=== PATIENT | male | born 1965 | race African-American/Black ===

== ENCOUNTER 2024-11-15 18:33 | Inpatient (IN) | payer MEDICARE, OTHER ==
[2024-11-15] MEDS ORDERED: Morphine 4 MG/ML VIAL ONE (18:45)
[2024-11-15 19:29] LABS: #Basophils 0.05 10x3/uL (0.0-0.2); %Basophils 0.7 % (0.0-1.0); %Eosinophils 4.3 % (0.0-10.0); %Lymphocytes 21.7 % (21.0-51.0); %Monocytes 6.7 % (0.0-10.0); %Neutrophils 65.6 % (42.0-75.0); Hematocrit 27.5 % (42.0-52.0); Hemoglobin 8.4 g/dL (14.0-18.0); Mean Corpuscular HGB CONC 30.5 g/dL (32.0-36.0); Mean Corpuscular Hemoglobin 25.9 pg (27.0-31.0); Mean Corpuscular Volume 84.9 fL (78.0-98.0); Mean Platelet Volume 10.8 fL (7.4-10.4); Platelet Count 271 10x3/uL (130-400); RBC Distribution Width 18.8 % (11.5-14.5); Red Blood Cell (RBC) Count 3.24 mill/uL (4.70-6.10)
[2024-11-15 19:50] LABS: ALT (SGPT) Less than 5 U/L (8-55); AST (SGOT) 6 U/L (5-34); Albumin 1.9 g/dL (3.5-5.0); Alkaline Phosphatase 84 U/L (40-110); Anion Gap 21 mmol/L (10-20); BUN (Urea Nitrogen) 68 mg/dL (8.4-25.7); Bilirubin, Total 0.2 mg/dL (0.2-1.2); Calc. Creatinine Clearance 0 mL/min (70-130); Calcium 8.3 mg/dL (7.8-10.44); Carbon Dioxide 12 mmol/L (22-29); Chloride 112 mmol/L (98-107); Estimated GFR 3; Globulin 3.9 g/dL (2.4-3.5); Glucose 72 mg/dL (70-105); Magnesium 1.9 mg/dL (1.6-2.6); Potassium 6.7 mmol/L (3.5-5.1); Protein, Total 5.8 g/dL (6.0-8.3); Sodium 138 mmol/L (136-145)
[2024-11-15 23:42] LABS: HBSAB Concentration 57.75 mIU/mL; HBsAg Index 0.25 S/CO (0-0.99); Hep B Core Total Ab NONREACTIVE (NonReactive); Hep B Core Total Index 0.41 S/CO (0-0.79); Hep B Surf AB REACTIVE (NonReactive); Hep B Surf Ag NONREACTIVE S/CO (NonReactive); Hep C IgG Ab NONREACTIVE S/CO (NonReactive); Hep C Index 0.11 S/CO (0-0.79)
[2024-11-16] MEDS ORDERED: Acetaminophen 325 MG TAB PO PRN (00:03)
[2024-11-16] MEDS ORDERED: Pharmacy to Dose : VANC/ABX'S IVPB PRN (00:07)
[2024-11-16] MEDS ORDERED: Vancomycin Hemodialysis Sliding Scale FS SCH (00:45)
[2024-11-16 01:18] VITALS: BMI 15.2
[2024-11-16] MEDS: Morphine 4 MG/ML VIAL SLOW IVP PRN (02:03)
[2024-11-16] MEDS: Albumin 25% 25 GM (100 mL) BOT IVPB SCH (02:14)
[2024-11-16 05:08] LABS: #Basophils 0.03 10x3/uL (0.0-0.2); %Basophils 0.5 % (0.0-1.0); %Eosinophils 5.8 % (0.0-10.0); %Lymphocytes 20.3 % (21.0-51.0); %Monocytes 6.8 % (0.0-10.0); %Neutrophils 65.9 % (42.0-75.0); Hemoglobin 7.3 g/dL (14.0-18.0); Mean Corpuscular HGB CONC 31.7 g/dL (32.0-36.0); Mean Corpuscular Hemoglobin 25.6 pg (27.0-31.0); Mean Corpuscular Volume 80.7 fL (78.0-98.0); Mean Platelet Volume 10.6 fL (7.4-10.4); Platelet Count 171 10x3/uL (130-400); RBC Distribution Width 18.3 % (11.5-14.5); Red Blood Cell (RBC) Count 2.85 mill/uL (4.70-6.10)
[2024-11-16] MEDS: Meropenem 500 MG in Sodium Chloride 0.9% 100 ML IVPB SCH (05:18)
[2024-11-16 05:27] LABS: Anion Gap 16 mmol/L (10-20); BUN (Urea Nitrogen) 32 mg/dL (8.4-25.7); Calc. Creatinine Clearance 8 mL/min (70-130); Calcium 7.6 mg/dL (7.8-10.44); Carbon Dioxide 21 mmol/L (22-29); Chloride 103 mmol/L (98-107); Estimated GFR 8; Glucose 98 mg/dL (70-105); Potassium 3.9 mmol/L (3.5-5.1); Sodium 136 mmol/L (136-145)
[2024-11-16 05:32] LABS: Vancomycin, Random 23.8 ug/mL (See Comment)
[2024-11-16] MEDS: VANCOMYCIN IVPB SCH (07:38)
[2024-11-16] MEDS: Heparin 5,000 UNITS/ML VIAL SC SCH (08:25)
[2024-11-16] MEDS: Minocycline HCl 50 MG CAP PO SCH (08:26)
[2024-11-16] MEDS ORDERED: DEXTROSE 5% IVPB SCH (12:00)
[2024-11-16] MEDS ORDERED: [UNRECOGNIZED DRUG - OTHER] IVPB SCH (12:00)
[2024-11-16] MEDS ORDERED: VANCOMYCIN HCL IVPB SCH (12:00)
[2024-11-16 13:04] LABS: Iron 86 ug/dL (65-175); Iron Binding Capacity, Total 71 mcg/dL (261-462)
[2024-11-16 14:22] LABS: Vitamin D, 25 Hydroxy Less than 3.5 ng/ml (> 30.0)
[2024-11-16] MEDS: Trospium 20 MG TAB PO SCH (14:23)
[2024-11-16] MEDS: Midodrine HCl 5 MG TAB PO SCH (14:23)
[2024-11-16 16:29] VITALS: BMI 15.2
[2024-11-16] MEDS: Sevelamer Carbonate 800 MG TAB PO SCH (17:53)
[2024-11-16] MEDS: Melatonin 3 MG TAB PO SCH (20:53)
[2024-11-16] MEDS: traMADol HCl 50 MG TAB PO PRN (20:53)
[2024-11-16] MEDS: Ondansetron PF 4 MG/2 ML Vial IVP PRN (22:21)
[2024-11-16] MEDS: Acetaminophen/Codeine 30-300mg Tablet PO PRN (23:50)
[2024-11-17 04:11] LABS: Bacteria/HPF None Seen HPF (None Seen); Bilirubin Negative (Negative); Blood, Urine 2+ (Negative); CAUTI Indications for Culture Dysuria,urgency,freq; Clarity Extra Turbid (Clear); Glucose, Urine (Dipstick) Normal (Negative); Ketone, Urine Negative (Negative); Leukocyte 500 Leu/uL (Negative); Nitrite Negative (Negative); Protein, Urine (Dipstick) 200 mg/dL (Neg-Trace); RBC/HPF Greater than 50 HPF (0-3); Specific Gravity, Urine 1.008 (1.002-1.036); Urobilinogen Normal mg/dL (Less than 2); WBC/HPF Greater than 50 HPF (0-3)
[2024-11-17 04:13] LABS: Urine Culture Reflex Yes Yes
[2024-11-17] MEDS: Finasteride 5 MG TAB PO SCH (09:05)
[2024-11-17] MEDS: Pantoprazole 40 MG DR.TAB PO SCH (09:05)
[2024-11-17] MEDS: Ergocalciferol 1.25 MG(50,000 UNITS) CAP PO SCH (09:05)
[2024-11-17] MEDS: Trospium 20 MG TAB PO SCH (09:05)
[2024-11-17] MEDS: Tamsulosin HCl 0.4 MG CAP PO SCH (09:05)
[2024-11-17] MEDS: Polyethylene Glycol 3350 17 GM Packet PO SCH (09:06)
[2024-11-17] MEDS: Morphine 2 MG/ML VIAL SLOW IVP PRN (10:21)
[2024-11-17] MEDS: EPOETIN ALFA-EPBX (ESRD) 10,000 UNITS/ML VIAL SC SCH (11:54)
[2024-11-18] MEDS: tiZANidine HCl 4 MG TAB PO PRN (01:46)
[2024-11-18] MEDS: Triple Antibiotic Oint 1 GM Packet TOP PRN (04:06)
[2024-11-18 04:34] LABS: #Basophils 0.04 10x3/uL (0.0-0.2); %Basophils 0.7 % (0.0-1.0); %Eosinophils 7.2 % (0.0-10.0); %Lymphocytes 32.9 % (21.0-51.0); %Monocytes 8.3 % (0.0-10.0); %Neutrophils 50.2 % (42.0-75.0); Hematocrit 27.1 % (42.0-52.0); Hemoglobin 8.2 g/dL (14.0-18.0); Mean Corpuscular HGB CONC 30.3 g/dL (32.0-36.0); Mean Corpuscular Hemoglobin 25.2 pg (27.0-31.0); Mean Corpuscular Volume 83.1 fL (78.0-98.0); Mean Platelet Volume 10.1 fL (7.4-10.4); Platelet Count 169 10x3/uL (130-400); RBC Distribution Width 18.6 % (11.5-14.5); Red Blood Cell (RBC) Count 3.26 mill/uL (4.70-6.10)
[2024-11-18 05:16] LABS: Anion Gap 17 mmol/L (10-20); BUN (Urea Nitrogen) 45 mg/dL (8.4-25.7); Calc. Creatinine Clearance 5 mL/min (70-130); Carbon Dioxide 21 mmol/L (22-29); Chloride 106 mmol/L (98-107); Potassium 6.3 mmol/L (3.5-5.1); Sodium 138 mmol/L (136-145)
[2024-11-18 05:17] LABS: Albumin 1.9 g/dL (3.5-5.0); BUN/Creatinine Ratio 3.97; Calcium 7.2 mg/dL (7.8-10.44); Estimated GFR 5; Glucose 88 mg/dL (70-105)
[2024-11-18] MEDS: Insulin Regular, Human 100 UNIT/ML 10 ML VIAL IVP SCH (05:46)
[2024-11-18] MEDS: CALCIUM GLUC 1 GM/NS 50 ML 1 GM in Premix 1 BAG IVPB SCH (05:56)
[2024-11-18] MEDS: Dextrose 50% Abboject 50 ML SYRINGE SLOW IVP SCH (05:57)
[2024-11-18] MEDS: Calcium Gluc 4.6 MEQ/10 ML (100 MG/ML) SLOW IVP ONE (06:10)
[2024-11-18 07:52] LABS: Vancomycin, Trough 22.2 ug/mL
[2024-11-18] MEDS ORDERED: Albumin 25% 25 GM (100 mL) BOT IVPB PRN (09:12)
[2024-11-18] MEDS: Activase 2 MG VIAL CATH SCH ×2 (15:09→15:16)
[2024-11-18] MEDS: Sterile Water 10 ML VIAL FS SCH (15:19)
[2024-11-18] MEDS: Sterile Water 10 ML VIAL IVP SCH (15:19)
[2024-11-18] MEDS: Meropenem 500 MG in Sodium Chloride 0.9% 100 ML IVPB SCH (20:14)
[2024-11-19 05:54] LABS: Albumin 1.8 g/dL (3.5-5.0); Anion Gap 15 mmol/L (10-20); BUN (Urea Nitrogen) 28 mg/dL (8.4-25.7); BUN/Creatinine Ratio 3.23; Calc. Creatinine Clearance 7 mL/min (70-130); Calcium 7.3 mg/dL (7.8-10.44); Carbon Dioxide 25 mmol/L (22-29); Chloride 106 mmol/L (98-107); Estimated GFR 6; Glucose 110 mg/dL (70-105); Phosphorus 7.1 mg/dL (2.3-4.7); Potassium 5.7 mmol/L (3.5-5.1); Sodium 140 mmol/L (136-145)
[2024-11-19] MEDS: Albumin 25% 25 GM (100 mL) BOT IVPB SCH ×2 (08:11→14:19)
[2024-11-19 08:52] LABS: Glucose 126 mg/dL (70-105)
[2024-11-19] MEDS ORDERED: Heparin 10,000 UNITS/ 10 ML VIAL ONE (09:40)
[2024-11-19] MEDS: Vancomycin HCl 250 MG in Sodium Chloride 0.9% 100 ML IVPB SCH (11:23)
[2024-11-19 12:02] LABS: Glucose 106 mg/dL (70-105)
[2024-11-20 08:13] LABS: Vancomycin, Trough 16.9 ug/mL
[2024-11-20 08:16] LABS: Albumin 2.3 g/dL (3.5-5.0); Anion Gap 13 mmol/L (10-20); BUN (Urea Nitrogen) 22 mg/dL (8.4-25.7); BUN/Creatinine Ratio 3.57; Calc. Creatinine Clearance 9 mL/min (70-130); Calcium 7.5 mg/dL (7.8-10.44); Carbon Dioxide 23 mmol/L (22-29); Chloride 106 mmol/L (98-107); Estimated GFR 10; Glucose 106 mg/dL (70-105); Phosphorus 6.4 mg/dL (2.3-4.7); Potassium 5.4 mmol/L (3.5-5.1); Sodium 137 mmol/L (136-145)
[2024-11-20] MEDS: Midodrine HCl 5 MG TAB PO SCH (08:25)
[2024-11-20] MEDS ORDERED: Heparin 10,000 UNITS/ 10 ML VIAL ONE (09:36)
[2024-11-20 09:41] LABS: Band 1 % (5-11); Burr Cells SLIGHT = 2-5 cells HPF (0-1); Elliptocytes SLIGHT = 2-5 cells HPF (0-1); Eosinophils 2 % (0-10); Hypochromia SLIGHT = 6-15 cells HPF (0-5); Large Platelets 9.9 % (0-5); Lymphocytes 22 % (21-51); Neutrophil 71 % (42-75); Platelet Adequacy Comment Platelets Decreased; Reactive Lymphocytes 1 % (0-10); Schistocytes SLIGHT = 2-5 cells HPF (0-1); Smudge Cells 19.8 %
[2024-11-20 10:02] LABS: Hemoglobin 7.3 g/dL (14.0-18.0); Mean Corpuscular HGB CONC 30.4 g/dL (32.0-36.0); Mean Corpuscular Hemoglobin 25.5 pg (27.0-31.0); Mean Corpuscular Volume 83.9 fL (78.0-98.0); Mean Platelet Volume 11.2 fL (7.4-10.4); Platelet Count 119 10x3/uL (130-400); RBC Distribution Width 18.4 % (11.5-14.5); Red Blood Cell (RBC) Count 2.86 mill/uL (4.70-6.10)
[2024-11-20 10:48] LABS: Macrocytosis SLIGHT = 6-15 cells HPF (0-5); Ovalocytes SLIGHT = 2-5 cells HPF (0-1); Polychromasia MODERATE = 3-4 cells HPF (0-2)
[2024-11-20 11:56] LABS: Glucose 103 mg/dL (70-105)
[2024-11-20] MEDS: Vancomycin HCl 500 MG in Sodium Chloride 0.9% 100 ML IVPB SCH (18:27)
[2024-11-21 06:40] LABS: Anion Gap 10 mmol/L (10-20); BUN (Urea Nitrogen) 15 mg/dL (8.4-25.7); Calc. Creatinine Clearance 13 mL/min (70-130); Calcium 7.4 mg/dL (7.8-10.44); Carbon Dioxide 27 mmol/L (22-29); Chloride 105 mmol/L (98-107); Estimated GFR 15; Glucose 147 mg/dL (70-105); Potassium 4.3 mmol/L (3.5-5.1); Sodium 138 mmol/L (136-145)
[2024-11-21 06:55] LABS: #Basophils 0.03 10x3/uL (0.0-0.2); %Basophils 0.6 % (0.0-1.0); %Eosinophils 5.3 % (0.0-10.0); %Lymphocytes 35.5 % (21.0-51.0); %Monocytes 6.1 % (0.0-10.0); %Neutrophils 52.3 % (42.0-75.0); Hematocrit 23.3 % (42.0-52.0); Hemoglobin 7.1 g/dL (14.0-18.0); Mean Corpuscular HGB CONC 30.5 g/dL (32.0-36.0); Mean Corpuscular Hemoglobin 25.5 pg (27.0-31.0); Mean Corpuscular Volume 83.8 fL (78.0-98.0); Mean Platelet Volume 11.9 fL (7.4-10.4); Platelet Count 102 10x3/uL (130-400); RBC Distribution Width 18.3 % (11.5-14.5); Red Blood Cell (RBC) Count 2.78 mill/uL (4.70-6.10)
[2024-11-21 07:29] LABS: Vancomycin, Trough 18.8 ug/mL
[2024-11-21] MEDS: Metoprolol Tartrate 25 MG TAB PO SCH (08:25)
[2024-11-21 12:01] VITALS: BP 155/79; TEMP 98.2
[2024-11-21] MEDS: Sulfameth/Trimethoprim DS 800-160mg TAB PO SCH (14:10)
== END 2024-11-21 15:51 | DRG 640 ==
LOC: ERS 18:33 → 2NO 22:50 → T4-B 11-16 00:14 → OBSVTOIN 11-16 13:45 → T4-B 11-16 18:19
PROVIDERS: ADMIT Student in an Organized Health Care Education/Training Program; ATTEND Internal Medicine
PROC: 30233J1 Transfusion of Nonautologous Serum Albumin into Peripheral Vein, Percutaneous Approach (ICD-10-PCS; principal; 2024-11-18)
DX: E87.5 Hyperkalemia (principal); K65.1 Peritoneal abscess; L89.154 Pressure ulcer of sacral region, stage 4; N18.6 End stage renal disease; R53.2 Functional quadriplegia; N39.0 Urinary tract infection, site not specified; C90.00 Multiple myeloma not having achieved remission; Z99.2 Dependence on renal dialysis; E88.09 Other disorders of plasma-protein metabolism, not elsewhere classified; E55.9 Vitamin D deficiency, unspecified; F41.9 Anxiety disorder, unspecified; F17.210 Nicotine dependence, cigarettes, uncomplicated; Z98.890 Other specified postprocedural states; E87.20 Acidosis, unspecified; D63.1 Anemia in chronic kidney disease; Z79.899 Other long term (current) drug therapy; Z79.01 Long term (current) use of anticoagulants; N40.0 Benign prostatic hyperplasia without lower urinary tract symptoms
CPT/HCPCS: 36415; 36416; 80048; 80053; 80069; 80202; 81001; 82306; 82728; 82947; 83540; 83550; 83735; 85025; 86704; 86706; 86803; 86850; 86900; 86901; 87077; 87086; 87186; 87340; 90935; 93005; 93010; 96374; 96375; 96376; 97139; G0257; G0378; J0613; J1644; J1815; J2185; J2270; J2272; J2405; J3370; J7999; P9047